=== PATIENT | female | born 1980 | race Two or more races ===

== ENCOUNTER 2016-10-13 16:23 | Emergency (ER) | payer OTHER ==
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
== END 2016-10-13 21:10 | disposition home or self-care (01) ==
LOC: CED 16:23 → CFTX 16:23
DX: S20.211A Contusion of right front wall of thorax, initial encounter (principal); V89.2XXA Person injured in unspecified motor-vehicle accident, traffic, initial encounter; Y92.410 Unspecified street and highway as the place of occurrence of the external cause
CPT/HCPCS: 71101; 99284